=== PATIENT | male | born 1950 | race Two or more races ===

== ENCOUNTER 2021-09-01 09:30 | Outpatient (CLI) | payer OTHER | END 2021-09-01 09:40 | disposition home or self-care (01) | LOC: MRI 09:30 | PROVIDERS: ATTEND Internal Medicine | DX: R55 Syncope and collapse (principal); Z86.73 Personal history of transient ischemic attack (TIA), and cerebral infarction without residual deficits | CPT/HCPCS: 70551 ==

== ENCOUNTER 2021-11-02 12:45 | Outpatient (CLI) | payer OTHER | END 2021-11-02 12:52 | disposition home or self-care (01) | LOC: MRI 12:45 | PROVIDERS: ATTEND Internal Medicine | DX: M47.22 Other spondylosis with radiculopathy, cervical region (principal); M54.2 Cervicalgia | CPT/HCPCS: 72141 ==

== ENCOUNTER 2023-01-13 15:42 | Emergency (ER) | payer OTHER ==
[~2023-01-13] VITALS: Ht 177.8 cm; Wt 79.4 kg
[2023-01-13] MEDS ORDERED: LOSARTAN POTASS50 MG PO (16:10)
[2023-01-13] MEDS ORDERED: COZAAR25 MG PO (16:11)
[2023-01-13] MEDS ORDERED: BACTRIM DS TAB1 EACH PO (21:47)
== END 2023-01-13 22:26 | disposition home or self-care (01) ==
LOC: ER 15:42
DX: R55 Syncope and collapse (principal); S52.611A Displaced fracture of right ulna styloid process, initial encounter for closed fracture; S00.12XA Contusion of left eyelid and periocular area, initial encounter; W18.39XA Other fall on same level, initial encounter; Y93.89 Activity, other specified; Y92.480 Sidewalk as the place of occurrence of the external cause; I10 Essential (primary) hypertension; N39.0 Urinary tract infection, site not specified